=== PATIENT | female | born 1985 | race Caucasian/White ===

== ENCOUNTER 2022-02-19 15:12 | Emergency (ER) | payer MEDICAID ==
[~2022-02-19] VITALS: Ht 167.6 cm; Wt 74.8 kg
[2022-02-19 15:26] VITALS: BP 116/64
--- NOTE | 2022-02-19 15:29 | NUR ---
To ER bed 16, c/o left ear pain x 5 days radiate to jaw 8/10 pain scale, aaox3, breathing even and non labored, awaiting md orders
--- NOTE | 2022-02-19 16:30 | NUR ---
SEEN AND EXAMINED BY JACKIE PITTMAN.
[2022-02-19] MEDS ORDERED: MECL-159 PO (16:50)
--- NOTE | 2022-02-19 16:55 | NUR ---
Patient discharged to home in stable condition. Written and verbal after care instructions given. Patient verbalizes understanding of instruction.
== END 2022-02-19 16:56 | disposition home or self-care (01) ==
LOC: ER 15:30
DX: H69.82 Other specified disorders of Eustachian tube, left ear (principal); Z79.899 Other long term (current) drug therapy

== ENCOUNTER 2022-05-11 17:44 | Emergency (ER) | payer MEDICAID ==
[~2022-05-11] VITALS: Ht 167.6 cm; Wt 89.8 kg
[~2022-05-11 17:44] MED LIST: MECL-159 PO
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
--- NOTE | 2022-05-11 18:05 | NUR ---
BRIA Martin AT BS FOR DEBORAH
--- NOTE | 2022-05-11 18:07 | NUR ---
BRIA SOLIS AT BEDSIDE FOR EVAL
--- NOTE | 2022-05-11 18:22 | NUR ---
X RAY AT BEDSIDE
--- NOTE | 2022-05-11 18:25 | NUR ---
PT TAKEN TO CT
[2022-05-11] MEDS ORDERED: KETOROLAC TROMETHAMINE INJ 30 MG/ML VIAL ONE (18:27)
[2022-05-11] MEDS ORDERED: CYCLOBENZAPRINE 10 MG TABLET ONE (18:27)
[2022-05-11] MEDS ORDERED: KETOROLAC TROMETHAMINE INJ 60 MG/2 ML VIAL IM ONE (18:30)
[2022-05-11] MEDS ORDERED: CYCLOBENZAPRINE 10 MG TABLET PO ONE (18:30)
[2022-05-11] MEDS ORDERED: CYCL10TA9 PO (19:30)
[2022-05-11] MEDS ORDERED: IBUP-1955 PO (19:30)
--- NOTE | 2022-05-11 19:40 | NUR ---
Patient discharged to home in stable condition. Written and verbal after care instructions given. Patient verbalizes understanding of instruction.
[2022-05-11 19:44] VITALS: BP 120/72
== END 2022-05-11 19:44 | disposition home or self-care (01) ==
LOC: ER 17:50
DX: S16.1XXA Strain of muscle, fascia and tendon at neck level, initial encounter (principal); V49.59XA Passenger injured in collision with other motor vehicles in traffic accident, initial encounter; Y93.89 Activity, other specified; Y92.413 State road as the place of occurrence of the external cause; Y99.8 Other external cause status
CPT/HCPCS: 99283; 96372; 72050; L0172; J1885

== ENCOUNTER 2023-02-14 12:20 | Emergency (ER) | payer MEDICAID ==
[~2023-02-14] VITALS: Ht 170.2 cm; Wt 98.0 kg
[~2023-02-14 12:20] MED LIST changes: +CYCL10TA9 PO; +IBUP-1955 PO
--- NOTE | 2023-02-14 12:30 | NUR ---
BIBS FOR PAIN IN STOMACH AND BACK WELL SEVERE PAIN ON URINATION FOR 3 DAYS. BLOOD PRESENT IN URINE. PATIENT HAS BEEN TAKING 'AZO' (BRAND NAME) MEDICATION FOR URINARY PAIN WITHOUT RELIEF. A/O X 3, BULGARIAN SPEAKING, ABLE TO MAKE NEEDS KNOWN. TOLERATING WELL ON ROOM AIR. WILL CONTINUE TO MONITOR
--- NOTE | 2023-02-14 13:10 | NUR ---
URINE SAMPLE OBTAINED
[2023-02-14 13:58] LABS: BILIRUBIN,URINE NEGATIVE (NEGATIVE); COLOR,URINE RED (YELLOW); LEUKOCYTE ESTERASE ,URINE 2+ (NEGATIVE); NITRITE, URINE POSITIVE (NEGATIVE); PH,URINE 6.5 (5.0-8.0); PROTEIN,URINE 3+ mg/dl (NEGATIVE); UGLUCOSE 1+ mg/dL (NEGATIVE); UROBILINOGEN,URINE >=8.0 EU/dL (0.2)
[2023-02-14 14:24] LABS: RBC,URINE 21-50 /HPF (0-2)
[2023-02-14 14:25] LABS: BACTERIA,URINE Moderate /HPF (None Seen); SQUAMOUS EPITHELIAL CELL,UR Moderate /HPF (None Seen)
[2023-02-14] MEDS ORDERED: CEPHALEXIN MONOHYDRATE 500 MG CAPSULE PO ONE ×2 (14:48→15:00)
[2023-02-14] MEDS ORDERED: PREN1TAB81 PO (15:59)
[2023-02-14] MEDS ORDERED: CEPH500T PO (15:59)
--- NOTE | 2023-02-14 16:12 | NUR ---
die technician at bedside
[2023-02-14 16:36] LABS: CALCIUM, SERUM 8.7 mg/dL (8.5-10.1); CREATININE 0.7 mg/dL (0.6-1.3); POTASSIUM 3.7 mmol/L (3.5-5.1)
[2023-02-14 16:57] LABS: ALBUMIN 3.3 g/dL (3.4-5.0); BILIRUBIN,DIRECT 0.1 mg/dL (0.0-0.2); BILIRUBIN,TOTAL 0.2 mg/dL (0.2-1.0); TOTAL PROTEIN, SERUM 7.1 g/dL (6.4-8.2)
[2023-02-14 18:57] VITALS: BP 115/69
== END 2023-02-14 18:58 | disposition home or self-care (01) ==
LOC: ER 12:26
DX: O23.41 Unspecified infection of urinary tract in pregnancy, first trimester (principal); N39.0 Urinary tract infection, site not specified; O26.891 Other specified pregnancy related conditions, first trimester; M54.50 Low back pain, unspecified; Z79.899 Other long term (current) drug therapy
CPT/HCPCS: 36415; 76856-TC; 80048-TC; 80076-TC; 81001; 84702-TC; 84703-TC; 86850-TC; 87086-TC

== ENCOUNTER 2024-02-15 08:24 | Emergency (ER) | payer MEDICAID ==
[~2024-02-15] VITALS: Ht 167.6 cm; Wt 98.4 kg
[~2024-02-15 08:24] MED LIST changes: +CEPH500T PO
[2024-02-15 08:27] VITALS: BP 110/81; TEMP 98.2
[2024-02-15] MEDS ORDERED: IBUPROFEN 600 MG TABLET ONE (08:48)
[2024-02-15] MEDS: IBUPROFEN 600 MG TABLET PO ONE (08:51)
[2024-02-15 08:52] VITALS: O2SAT 99
== END 2024-02-15 08:52 | disposition home or self-care (01) ==
LOC: ER 08:29
DX: M54.6 Pain in thoracic spine (principal); R22.2 Localized swelling, mass and lump, trunk; Z90.49 Acquired absence of other specified parts of digestive tract

== ENCOUNTER 2024-07-17 23:11 | Emergency (ER) | payer MEDICAID ==
[~2024-07-17] VITALS: Ht 167.6 cm; Wt 97.5 kg
[2024-07-18 00:19] LABS: BASOPHILS # (AUTO) 0.1 K/uL (0.0-0.2); BASOPHILS % (AUTO) 1.1 % (0.0-2.0); EOSINOPHILS # (AUTO) 0.1 K/uL (0.0-0.7); EOSINOPHILS % (AUTO) 1.6 % (0.0-6.0); HEMATOCRIT 39 % (33-45); HEMOGLOBIN 12.5 g/dL (11.5-14.8); LYMPHOCYTES # (AUTO) 2.9 K/uL (0.8-4.8); LYMPHOCYTES % (AUTO) 41.8 % (20.0-44.0); MEAN CORPUSCULAR HEMOGLOBIN 28 PG (26.0-33.0); MEAN CORPUSCULAR HGB CONC 32 g/dl (31.0-36.0); MEAN CORPUSCULAR VOLUME 85 fL (82-100); MONOCYTES # (AUTO) 0.6 K/uL (0.1-1.30); MONOCYTES % (AUTO) 9.2 % (2.0-12.0); NEUTROPHILS # (AUTO) 3.2 K/uL (1.8-8.9); NEUTROPHILS % (AUTO) 46.3 % (43.0-81.0); PLATELET COUNT (AUTO) 276 K/uL (150-450); RED BLOOD CELL COUNT(AUTO) 4.52 MIL/uL (4.0-5.2); RED CELL DISTRIBUTION WIDTH 15.2 % (11.5-15.0); WHITE BLOOD COUNT (AUTO) 6.9 K/uL (4.3-11.0)
[2024-07-18] MEDS ORDERED: ASPIRIN 325 MG TABLET ONE (00:32)
[2024-07-18] MEDS ORDERED: NITROGLYCERIN 0.4 MG/TAB BOTTLE ONE (00:32)
[2024-07-18 00:35] LABS: CALCIUM, SERUM 8.5 mg/dL (8.5-10.1); CARBON DIOXIDE 27 mmol/L (21-32); CHLORIDE 107 mmol/L (98-107); CREATININE 0.9 mg/dL (0.6-1.3); GLUCOSE 109 mg/dL (74-106); POTASSIUM 3.9 mmol/L (3.5-5.1); SODIUM SERUM 141 mmol/L (136-145); UREA NITROGEN, BLOOD 31 mg/dL (7-18)
[2024-07-18] MEDS: ASPIRIN 325 MG TABLET PO ONE (00:37)
[2024-07-18] MEDS: NITROGLYCERIN 0.4 MG/TAB BOTTLE SL ONE (00:37)
[2024-07-18 00:40] LABS: NT-PRO BNP 17 pg/mL (0-125)
[2024-07-18 01:41] LABS: PREGNANCY TEST URINE QUAL NEGATIVE (NEGATIVE)
[2024-07-18] MEDS ORDERED: IOHEXOL-350 100 ML VIAL IV ONE (02:24)
[2024-07-18] MEDS ORDERED: CT SWABBABLE VALVE TRANS SET 1 EA INFUS.SET MC ONE (02:24)
[2024-07-18 03:35] VITALS: BP 125/82; TEMP 97.9; O2SAT 99
== END 2024-07-18 03:36 | disposition home or self-care (01) ==
LOC: ER 23:13
DX: R07.89 Other chest pain (principal); M25.512 Pain in left shoulder; M54.2 Cervicalgia; Z98.890 Other specified postprocedural states; Z90.49 Acquired absence of other specified parts of digestive tract
CPT/HCPCS: 99285; 93005; 71275; 71045; 85025; 80048; 85378; 84703; 36415; 84484 ×2; 83880; Q9967

== ENCOUNTER 2024-10-22 12:55 | Emergency (ER) | payer MEDICAID ==
[~2024-10-22] VITALS: Ht 165.1 cm; Wt 90.7 kg
[2024-10-22 13:50] VITALS: BP 125/100; TEMP 98.7
[2024-10-22 14:44] LABS: APPEARANCE,URINE CLEAR (CLEAR); BILIRUBIN,URINE NEGATIVE (NEGATIVE); BLOOD, URINE NEGATIVE Ery/uL (NEGATIVE); COLOR,URINE YELLOW (YELLOW); KETONES,URINE NEGATIVE (NEGATIVE); LEUKOCYTE ESTERASE ,URINE NEGATIVE (NEGATIVE); NITRITE, URINE NEGATIVE (NEGATIVE); PROTEIN,URINE NEGATIVE (NEGATIVE); UGLUCOSE NEGATIVE (NEGATIVE); UROBILINOGEN,URINE 0.2 EU/dL (0.2)
[2024-10-22] MEDS ORDERED: PHEN-704 PO (14:55)
[2024-10-22] MEDS ORDERED: IBUP-1955 PO (14:55)
[2024-10-22 14:58] VITALS: O2SAT 99
== END 2024-10-22 15:01 | disposition home or self-care (01) ==
LOC: ER 12:55
DX: R30.0 Dysuria (principal); R10.2 Pelvic and perineal pain; R35.0 Frequency of micturition